=== PATIENT | female | born 1970 | race Caucasian/White ===

== ENCOUNTER 2019-01-02 18:17 | Inpatient (IN) | payer OTHER ==
[~2019-01-02] VITALS: Ht 162.6 cm; Wt 59.7 kg
[2019-01-02 18:22] VITALS: Ht 162.6 cm; Wt 59.7 kg
[2019-01-02 19:49] LABS: BASOPHIL % 0.7 % (0-2); PLATELET COUNT 249 x10^3mcL (130-400)
[2019-01-02 19:50] LABS: RED CELL DISTRIBUTION WIDTH 17.8 % (11.5-14.5)
[2019-01-02 19:59] LABS: CALCIUM 9.2 mg/dL (8.5-10.1); CARBON DIOXIDE 27.8 mmol/L (21-32); CHLORIDE SERUM 99 mmol/L (98-107); CREATININE SERUM 0.7 mg/dL (0.6-1.0); GFR1 > 60 mL/min; GLUCOSE SERUM 101 mg/dL (74-106); POTASSIUM SERUM 3.6 mmol/L (3.5-5.1); SODIUM SERUM 139 mmol/L (136-145)
[2019-01-02 20:04] LABS: ALBUMIN 4.1 g/dL (3.4-5.0); ALKALINE PHOSPHATASE 144 U/L (46-116); ALT/SGPT 82 U/L (14-59); AST/SGOT 52 U/L (15-37)
[2019-01-02 21:43] LABS: microscopic required? YES; urine erythrocyte TRACE (NEGATIVE)
[2019-01-02 21:56] LABS: AMPHETAMINE QUAL UR POSITIVE (See below)
[2019-01-02] MEDS ORDERED: PROVENTIL0.09 MG/A1 IH (22:39)
[2019-01-02 22:43] LABS: MAGNESIUM 1.8 mg/dL (1.8-2.4)
[2019-01-02 22:44] LABS: CHOLESTEROL/HDL RATIO 1.8
[2019-01-02 22:45] LABS: T3 TOTAL 1.46 ng/mL
[2019-01-02 22:51] LABS: FREE T4 1.01 ng/dL (0.76-1.46); FREE THYROXINE INDEX 2.6 ug/dL (1.4-4.5)
[2019-01-02 23:37] VITALS: BP 153/85
[2019-01-03 05:12] VITALS: BP 143/88
[2019-01-03 06:21] LABS: BASOPHIL % 0.7 % (0-2); PLATELET COUNT 222 x10^3mcL (130-400)
[2019-01-03 06:36] LABS: CARBON DIOXIDE 27.8 mmol/L (21-32); CHLORIDE SERUM 100 mmol/L (98-107); CREATININE SERUM 0.7 mg/dL (0.6-1.0); GFR1 > 60 mL/min; GLUCOSE SERUM 86 mg/dL (74-106); POTASSIUM SERUM 3.8 mmol/L (3.5-5.1); SODIUM SERUM 141 mmol/L (136-145)
[2019-01-03 06:54] LABS: RED CELL DISTRIBUTION WIDTH 17.4 % (11.5-14.5)
[2019-01-03 08:36] VITALS: BP 127/87
[2019-01-03 11:57] VITALS: BP 136/81
[2019-01-03 17:13] VITALS: BP 117/86
[2019-01-03 21:06] VITALS: BP 118/74
[2019-01-04 05:10] VITALS: BP 106/74
[2019-01-04 06:47] LABS: BASOPHIL % 0.6 % (0-2); PLATELET COUNT 208 x10^3mcL (130-400)
[2019-01-04 06:56] LABS: CALCIUM 8.3 mg/dL (8.5-10.1); CARBON DIOXIDE 24.5 mmol/L (21-32); CHLORIDE SERUM 104 mmol/L (98-107); CREATININE SERUM 0.6 mg/dL (0.6-1.0); GFR1 > 60 mL/min; GLUCOSE SERUM 68 mg/dL (74-106); MAGNESIUM 1.9 mg/dL (1.8-2.4); POTASSIUM SERUM 3.3 mmol/L (3.5-5.1); SODIUM SERUM 141 mmol/L (136-145)
[2019-01-04 07:21] LABS: RED CELL DISTRIBUTION WIDTH 17.2 % (11.5-14.5)
[2019-01-04 08:14] VITALS: BP 110/63; BP 111/70
[2019-01-04 16:52] VITALS: BP 115/76
[2019-01-04 20:42] VITALS: BP 108/62
[2019-01-04 23:46] VITALS: BP 108/62
[2019-01-05 05:29] VITALS: BP 112/67
[2019-01-05 06:05] LABS: BASOPHIL % 0.9 % (0-2); PLATELET COUNT 195 x10^3mcL (130-400)
[2019-01-05 06:24] LABS: CALCIUM 7.9 mg/dL (8.5-10.1); CARBON DIOXIDE 25.7 mmol/L (21-32); CHLORIDE SERUM 109 mmol/L (98-107); CREATININE SERUM 0.5 mg/dL (0.6-1.0); GFR1 > 60 mL/min; GLUCOSE SERUM 79 mg/dL (74-106); POTASSIUM SERUM 3.5 mmol/L (3.5-5.1); SODIUM SERUM 144 mmol/L (136-145)
[2019-01-05 07:27] LABS: RED CELL DISTRIBUTION WIDTH 17.2 % (11.5-14.5)
[2019-01-05 08:03] VITALS: BP 137/85
[2019-01-05] MEDS ORDERED: CARVEDILOL6.25 M1 PO (13:25)
[2019-01-05 14:00] VITALS: BP 137/85
[2019-01-05] MEDS ORDERED: PROVENTIL0.09 MG/A1 INH (15:15)
== END 2019-01-05 15:25 | disposition home or self-care (01) | DRG 282 ==
LOC: ED 18:17 → MU 22:05 → DU 22:05 → MU 01-04 14:53
PROVIDERS: Emergency Medicine; Internal Medicine; ADMIT Internal Medicine
DX: I21.A1 Myocardial infarction type 2 (principal); F15.129 Other stimulant abuse with intoxication, unspecified; J45.909 Unspecified asthma, uncomplicated; E78.5 Hyperlipidemia, unspecified; F17.210 Nicotine dependence, cigarettes, uncomplicated; E87.6 Hypokalemia
CPT/HCPCS: 83880; 84439; G0378; G0480; J0696; J1644; J1650; J2060; J2405; J7030; J7620; Q0092